=== PATIENT | male | born 1935 | race Caucasian/White ===

== ENCOUNTER → 2016-10-11 | Outpatient (CLI) | payer MEDICARE, OTHER ==
[~2016-10-11] MED LIST: ASPIRIN CHEWABL81 MG PO; JALYN 0.5-0.41 EACH PO; LIPITOR TAB 1010 MG PO; LOSARTAN POTAS100 MG PO; MULTIVITAMINS1 EAC1 PO; NEURONTIN 300300 MG PO; NEXIUM40 MG PO; NORVASC 5 MG TAB5 MG PO; TEMAZEPAM30 MG PO; TOPROL XL50 MG PO; ZETIA10 MG PO
[2016-10-11 11:37] LABS: HEMOGLOBIN 14.5 gm/dl (14.0-17.5); RED BLOOD COUNT 4.42 M/UL (4.20-5.50); WHITE BLOOD COUNT 10.7 K/UL (4.5-11.0)
== END ==
LOC: OPSV2 10:40 → EDSTATUS 11:00
PROVIDERS: Orthopaedic Surgery
DX: Z01.810 Encounter for preprocedural cardiovascular examination (principal); Z01.812 Encounter for preprocedural laboratory examination; Z01.818 Encounter for other preprocedural examination; M17.12 Unilateral primary osteoarthritis, left knee
CPT/HCPCS: 71020; 80048; 81001; 85025; 87081; 93005

== ENCOUNTER 2016-10-25 06:22 | Inpatient (IN) | payer MEDICARE, OTHER ==
[~2016-10-25] VITALS: Ht 165.1 cm; Wt 99.8 kg
[2016-10-25] MEDS ORDERED: ZETIA10 MG PO (07:16)
[2016-10-25] MEDS ORDERED: TEMAZEPAM30 MG PO (07:17)
[2016-10-25] MEDS ORDERED: LOSARTAN POTAS100 MG PO (07:17)
[2016-10-25] MEDS ORDERED: NEXIUM40 MG PO (07:18)
[2016-10-25] MEDS ORDERED: NEURONTIN 300300 MG PO (07:18)
[2016-10-25] MEDS ORDERED: MULTIVITAMINS1 EAC1 PO (07:19)
[2016-10-25] MEDS ORDERED: TOPROL XL50 MG PO (07:20)
[2016-10-25] MEDS ORDERED: ASPIRIN CHEWABL81 MG PO (07:20)
[2016-10-25] MEDS ORDERED: JALYN 0.5-0.41 EACH PO (07:20)
[2016-10-25] MEDS ORDERED: LIPITOR TAB 1010 MG PO (07:21)
[2016-10-25] MEDS ORDERED: NORVASC 5 MG TAB5 MG PO (07:21)
[2016-10-26 04:15] LABS: HEMOGLOBIN 10.7 gm/dl (14.0-17.5); RED BLOOD COUNT 3.36 M/UL (4.20-5.50); WHITE BLOOD COUNT 11.8 K/UL (4.5-11.0)
[2016-10-26 04:33] LABS: BUN/CREATININE RATIO 21 (0-10)
[2016-10-27 06:20] LABS: HEMOGLOBIN 9.9 gm/dl (14.0-17.5); RED BLOOD COUNT 3.07 M/UL (4.20-5.50); WHITE BLOOD COUNT 10.8 K/UL (4.5-11.0)
[2016-10-27 06:44] LABS: BUN/CREATININE RATIO 23 (0-10)
== END 2016-10-27 09:18 | DRG 470 ==
LOC: ZOBSOF 06:22 → M/S 16:37
PROVIDERS: Internal Medicine; ADMIT Orthopaedic Surgery
PROC: 0SRD0J9 Replacement of Left Knee Joint with Synthetic Substitute, Cemented, Open Approach (ICD-10-PCS; principal; 2016-10-25 07:45)
DX: M17.12 Unilateral primary osteoarthritis, left knee (principal); I10 Essential (primary) hypertension; E78.5 Hyperlipidemia, unspecified; K21.9 Gastro-esophageal reflux disease without esophagitis; Z85.828 Personal history of other malignant neoplasm of skin; Z79.82 Long term (current) use of aspirin; Z79.899 Other long term (current) drug therapy; Z87.19 Personal history of other diseases of the digestive system; Z82.49 Family history of ischemic heart disease and other diseases of the circulatory system; Z80.9 Family history of malignant neoplasm, unspecified; Z83.3 Family history of diabetes mellitus; Z88.2 Allergy status to sulfonamides
CPT/HCPCS: 36415; 73560; 80048; 80061; 83735; 84100; 85025; 86850; 86900; 86901; 97110; 97116; 97530; 97535; C1776; J0171; J0690; J0735; J1885; J2274; J2370; J2405; J2795; J3370; J7050; J7120

== ENCOUNTER 2021-03-16 11:07 | Observation (INO) | payer MEDICARE, OTHER ==
[~2021-03-16] VITALS: Ht 165.1 cm; Wt 97.5 kg
[~2021-03-16 11:07] MED LIST changes: +AVODART0.5 MG PO; -JALYN 0.5-0.41 EACH PO; -NEURONTIN 300300 MG PO; +NEURONTIN300 MG PO; -NORVASC 5 MG TAB5 MG PO; +NORVASC5 MG PO; +OMNICEF 300 MG300 MG PO; +POLYTRIM EYE DR10 ML EYEBOTH; +PROVENTIL HFA6.7 GM INH
[2021-03-16 12:42] LABS: HEMOGLOBIN 14.1 gm/dl (14.0-17.5); RED BLOOD COUNT 4.3 M/UL (4.20-5.50); WHITE BLOOD COUNT 7.8 K/UL (4.5-11.0)
[2021-03-16] MEDS ORDERED: FAMOTIDINE40 MG PO (16:45)
[2021-03-16] MEDS ORDERED: LABETALOL HCL100 MG PO (16:46)
[2021-03-16] MEDS ORDERED: LISINOPRIL2.5 MG PO (16:46)
[2021-03-16] MEDS ORDERED: FLOMAX 0.4 MG0.4 MG PO (16:46)
[2021-03-16] MEDS ORDERED: MIRALAX17 GM PO (16:47)
[2021-03-16] MEDS ORDERED: TYLENOL EXTRA500 MG PO (16:47)
[2021-03-17 02:59] LABS: HEMOGLOBIN 13.6 gm/dl (14.0-17.5); RED BLOOD COUNT 4.23 M/UL (4.20-5.50)
[2021-03-17 03:24] LABS: BUN/CREATININE RATIO 14 (0-10)
[2021-03-17 14:43] LABS: BORDETELLA PARAPERTUSSIS Not Detected (Not Detectd); BORDETELLA PERTUSSIS Not Detected (Not Detectd); CHLAMYDIA PNEUMONIAE Not Detected (Not Detectd); CORONAVIRUS HKU1 Not Detected (Not Detectd); CORONAVIRUS NL63 Not Detected (Not Detectd); CORONAVIRUS OC43 Not Detected (Not Detectd); CORONOAVIRUS 229E Not Detected (Not Detectd); HUMAN METAPNEUMOVIRUS Not Detected (Not Detectd); INFLUENZA A Not Detected (Not Detectd); INFLUENZA B Not Detected (Not Detectd); MYCOPLASMA PNEUMONIAE Not Detected (Not Detectd); PARAINFLUENZA VIRUS 1 Not Detected (Not Detectd); PARAINFLUENZA VIRUS 2 Not Detected (Not Detectd); PARAINFLUENZA VIRUS 3 Not Detected (Not Detectd); PARAINFLUENZA VIRUS 4 Not Detected (Not Detectd); RESPIRATORY SYNCYTIAL VIRUS Not Detected (Not Detectd)
[2021-03-17 17:31] LABS: HUMAN RHINOVIRUS/ENTEROVIRUS DETECTED (Not Detectd); SARS-CoV-2 NOT DETECTED (Not Detectd)
[2021-03-18] MEDS ORDERED: ELIQUIS 5 MG TAB5 MG PO (08:44)
[2021-03-18] MEDS ORDERED: CARDIZEM SR 60M60 MG PO (08:44)
[2021-03-18] MEDS ORDERED: ASPIRIN EC81 MG PO (08:44)
[2021-03-18] MEDS ORDERED: AMIODARONE HCL200 MG PO (08:44)
[2021-03-18 09:40] LABS: HEMOGLOBIN 13.2 gm/dl (14.0-17.5); RED BLOOD COUNT 4.24 M/UL (4.20-5.50); WHITE BLOOD COUNT 9.3 K/UL (4.5-11.0)
== END 2021-03-18 15:04 | disposition home or self-care (01) ==
LOC: ER1 11:07 → CDU 16:21 → PROG CARE 16:21
PROVIDERS: Internal Medicine; Physician Assistant Medical; ADMIT Internal Medicine
DX: I48.91 Unspecified atrial fibrillation (principal); R05.9 Cough, unspecified; N17.9 Acute kidney failure, unspecified; I12.9 Hypertensive chronic kidney disease with stage 1 through stage 4 chronic kidney disease, or unspecified chronic kidney disease; N18.30 Chronic kidney disease, stage 3 unspecified; E78.5 Hyperlipidemia, unspecified; Z20.822 Contact with and (suspected) exposure to COVID-19; Z88.2 Allergy status to sulfonamides; Z87.891 Personal history of nicotine dependence; Z79.82 Long term (current) use of aspirin; Z79.899 Other long term (current) drug therapy
CPT/HCPCS: ECHO; 36415; 71045; 71046; 80048; 80053; 81001; 82550; 82553; 83735; 83874; 83880; 84100; 84439; 84443; 84484; 85025; 85027; 87633; 93005; 93306; 96372; 96374; 96375; 96376; 99285; G0378; J0696; J1650; U0002

== ENCOUNTER → 2021-06-02 | Outpatient (CLI) | payer MEDICARE, OTHER ==
[~2021-06-02] MED LIST changes: +AMIODARONE HCL200 MG PO; +ASPIRIN EC81 MG PO; +CARDIZEM SR 60M60 MG PO; +ELIQUIS 5 MG TAB5 MG PO; +FAMOTIDINE40 MG PO; +FLOMAX 0.4 MG0.4 MG PO; +LABETALOL HCL100 MG PO; +LISINOPRIL2.5 MG PO; +MIRALAX17 GM PO; +TYLENOL EXTRA500 MG PO
== END ==
LOC: HEART 5 08:53
DX: R06.02 Shortness of breath (principal); Z79.899 Other long term (current) drug therapy
CPT/HCPCS: 94010; 94729

== ENCOUNTER 2021-06-08 08:40 | Emergency (ER) | payer MEDICARE, OTHER ==
[2021-06-08] MEDS ORDERED: BACTROBAN OINT22 GM EXT (10:10)
== END 2021-06-08 10:15 | disposition home or self-care (01) ==
LOC: ER1 08:40
DX: S60.221A Contusion of right hand, initial encounter (principal); Z87.891 Personal history of nicotine dependence; I10 Essential (primary) hypertension; I48.91 Unspecified atrial fibrillation; Z79.01 Long term (current) use of anticoagulants; Z23 Encounter for immunization; W19.XXXA Unspecified fall, initial encounter; Y92.009 Unspecified place in unspecified non-institutional (private) residence as the place of occurrence of the external cause
CPT/HCPCS: 73130; 90471; 90714; 99283

== ENCOUNTER 2021-11-04 19:33 | Emergency (ER) | payer MEDICARE, OTHER ==
[~2021-11-04 19:33] MED LIST changes: +BACTROBAN OINT22 GM EXT
== END 2021-11-04 20:15 | disposition home or self-care (01) ==
LOC: ER1 19:33
DX: I13.10 Hypertensive heart and chronic kidney disease without heart failure, with stage 1 through stage 4 chronic kidney disease, or unspecified chronic kidney disease (principal); I48.91 Unspecified atrial fibrillation; N18.9 Chronic kidney disease, unspecified
CPT/HCPCS: 99283